=== PATIENT | male | born 1995 | race Caucasian/White ===

== ENCOUNTER 2020-07-03 10:50 | Outpatient (REF) | payer OTHER, SELFPAY ==
[2020-07-03 13:46] LABS: MANUAL DIFF FLAG NO
[2020-07-03 13:52] LABS: Basophils Absolute Auto 0.1 X10*3/uL (0.0-0.2); Basophils Percent Auto 1.6 % (0-2); Eosinophils Absolute Auto 0.6 X10*3/uL (0.0-0.4); Eosinophils Percent Auto 9.3 % (0-4); Hematocrit 45.1 % (42-52); Hemoglobin 15.5 g/dl (14.0-18.0); Imm Gran Abs Auto 0.01 X10*3/uL (0.00-0.03); Imm Gran Pct Auto 0.2 % (0.0-0.4); Lymphocytes Absolute Auto 2.2 X10*3/uL (1.2-4.9); Lymphocytes Percent Auto 34.2 % (20-40); Mean Corpuscular HGB Conc 34.4 g/dl (31.0-36.0); Mean Corpuscular Hemoglobin 31.3 pg (27.0-33.0); Mean Corpuscular Volume 90.9 fL (80-98); Monocytes Absolute Auto 0.5 X10*3/uL (0.1-1.2); Monocytes Percent Auto 7.9 % (2-11); Neutrophils Percent Auto 46.8 % (45-73); Platelet Count 223 X10*3/uL (160-400); Red Blood Count 4.96 X10*6/uL (4.60-5.80); Red Cell Distribution Width 12.1 % (11.0-16.0); White Blood Count 6.3 X10*3/uL (4.8-10.8)
[2020-07-03 14:19] LABS: Alanine Aminotransferase 48 U/L (0-40); Albumin Level 4.8 g/dL (3.5-5.0); Alkaline Phosphatase 109 U/L (39-117); Anion Gap 13 (12-20); Aspartate Amino Transferase 28 U/L (5-37); Bilirubin Total 0.4 mg/dL (0.0-1.0); Blood Urea Nitrogen 16 mg/dL (9-16); Calcium 9.9 mg/dL (8.4-10.2); Carbon Dioxide 29 mmol/L (22-29); Chloride 103 mmol/L (96-108); Estimated Glomerular Filt Rate > 60; Glucose Fasting 87 mg/dL (60-99); Potassium 4.6 mmol/L (3.3-5.1); Sodium 140 mmol/L (135-145); Total Protein 7.7 g/dL (6.5-8.0)
[2020-07-03 14:28] LABS: TSH reflex Free T4 2.46 uIU/mL (0.32-4.0)
== END 2020-07-03 10:51 | disposition home or self-care (01) ==
LOC: HO.HMGCLDS 10:50
PROVIDERS: PCP Physician Assistant; Visit Provider Physician Assistant
DX: E03.9 Hypothyroidism, unspecified (principal)
CPT/HCPCS: 36415; 80053; 84443; 85025

== ENCOUNTER 2020-09-05 16:42 | Outpatient (REF) | payer OTHER, SELFPAY | END 2020-09-05 16:43 | disposition home or self-care (01) | LOC: HO.LAB 16:42 | PROVIDERS: Visit Provider Nurse Practitioner Family | DX: J01.00 Acute maxillary sinusitis, unspecified (principal); Z20.822 Contact with and (suspected) exposure to COVID-19 | CPT/HCPCS: U0003; U0005 ==

== ENCOUNTER 2021-03-29 14:12 | Outpatient (REF) | payer OTHER, SELFPAY ==
[2021-03-29 16:37] LABS: Hematocrit 42.9 % (42.0-52.0); Hemoglobin 14.8 g/dl (14.0-18.0); Mean Corpuscular HGB Conc 34.5 g/dl (31.0-36.0); Mean Corpuscular Hemoglobin 30.1 pg (27.0-33.0); Mean Corpuscular Volume 87.4 fL (80.0-98.0); Mean Platelet Volume 9.9 fL (9.4-12.4); Platelet Count 238 X10*3/uL (160-400); Red Blood Count 4.91 X10*6/uL (4.60-5.80); Red Cell Distribution Width 11.9 % (11.0-16.0); White Blood Count 6.4 X10*3/uL (4.8-10.8)
[2021-03-29 16:44] LABS: Alanine Aminotransferase 37 U/L (0-40); Albumin Level 4.8 g/dL (3.5-5.0); Alkaline Phosphatase 92 U/L (39-117); Anion Gap 11 (12-20); Aspartate Amino Transferase 28 U/L (5-37); Bilirubin Total 0.4 mg/dL (0.0-1.0); Blood Urea Nitrogen 22 mg/dL (9-16); Calcium 9.9 mg/dL (8.4-10.2); Carbon Dioxide 26 mmol/L (22-29); Chloride 105 mmol/L (96-108); Estimated Glomerular Filt Rate > 60; Glucose Fasting 88 mg/dL (60-99); Potassium 4.1 mmol/L (3.3-5.1); Sodium 138 mmol/L (135-145); Total Protein 7.6 g/dL (6.5-8.0)
[2021-03-29 17:05] LABS: TSH reflex Free T4 1.91 uIU/mL (0.32-4.0)
== END 2021-03-29 14:13 | disposition home or self-care (01) ==
LOC: HO.HMGCLDS 14:12
PROVIDERS: PCP Physician Assistant; Visit Provider Physician Assistant
DX: E03.9 Hypothyroidism, unspecified (principal); I10 Essential (primary) hypertension
CPT/HCPCS: 36415; 80053; 84443; 85027

== ENCOUNTER 2024-04-17 09:40 | Outpatient (REF) | payer OTHER, SELFPAY ==
[2024-04-17 11:21] LABS: Hematocrit 43.8 % (42.0-52.0); Hemoglobin 15.3 g/dl (14.0-18.0); Mean Corpuscular HGB Conc 34.9 g/dl (31.0-36.0); Mean Corpuscular Hemoglobin 30.5 pg (27.0-33.0); Mean Corpuscular Volume 87.3 fL (80.0-98.0); Mean Platelet Volume 9.5 fL (9.4-12.4); Platelet Count 202 X10*3/uL (160-400); Red Blood Count 5.02 X10*6/uL (4.60-5.80); White Blood Count 6.7 X10*3/uL (4.8-10.8)
[2024-04-17 11:36] LABS: Alanine Aminotransferase 41 U/L (0-40); Albumin Level 4.6 g/dL (3.5-5.0); Alkaline Phosphatase 85 U/L (39-117); Anion Gap 11 (12-20); Aspartate Amino Transferase 30 U/L (5-37); Bilirubin Total 0.5 mg/dL (0.0-1.0); Blood Urea Nitrogen 16 mg/dL (9-16); Calcium 9.6 mg/dL (8.4-10.2); Carbon Dioxide 28 mmol/L (22-29); Chloride 105 mmol/L (96-108); Estimated Glomerular Filt Rate > 60; Glucose Fasting 87 mg/dL (60-99); Sodium 140 mmol/L (135-145); Total Protein 7.4 g/dL (6.5-8.0)
[2024-04-17 11:53] LABS: TSH reflex Free T4 1.59 uIU/mL (0.32-4.0)
== END 2024-04-17 09:41 | disposition home or self-care (01) ==
LOC: HO.HMGCLDS 09:40
PROVIDERS: PCP Physician Assistant; Visit Provider Physician Assistant
DX: E03.9 Hypothyroidism, unspecified (principal); Z13.1 Encounter for screening for diabetes mellitus
CPT/HCPCS: 36415; 80053; 84443; 85027

== ENCOUNTER 2024-04-20 13:27 | Outpatient (AMB) | payer OTHER, SELFPAY ==
[2024-04-20 13:31] VITALS: BP 104/72; PULSE 96; O2SAT 97; BMI 29.6
--- NOTE | 2024-04-20 13:31 | MHC.PC.OV ---
Vital Signs 04/20/24 13:31 Height 5 ft 11 in Weight 212 lb 2 oz BMI 29.6 BP 104/72 Blood Pressure Location Lt brachial Position Sitting Pulse 96 Pulse Source Pulse Oximeter Pulse Oximetry (%) 97 Oxygen Delivery Method Room Air Intake Visit Reasons: F/u after cancelled appt Intake Note: Patient is here today for a physical. 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: No Accompanied by: Self / Same As Patient Allergies amoxicillin [Augmentin] Allergy (Unknown, Verified 04/20/24 13:35) Unknown clavulanic acid [Augmentin] Allergy (Unknown, Verified 04/20/24 13:35) Unknown sulfamethoxazole Allergy (Unknown, Verified 04/20/24 13:35) Unknown Medication List - Last Reconciled 04/20/24 by Chapito Gaxiola PA-C chlorpheniramine maleate 4 mg PO ONCE PRN levothyroxine 75 mcg PO DAILY sertraline (Zoloft) 100 mg PO DAILY 90 days Tobacco use date assessed: 04/20/24 Dental Screening Dental Screen Date: 04/20/24 Did you have a dental visit in the last 12 months?: Yes Did you have a dental problem in the last 6 months where you did not have access to dental care?: No Was dental information given to patient?: Patient has dentist HPI F/u after cancelled appt HPI Details patient is a 29-year-old male here today for an annual physical. ? Patient has a past medical history significant for? anxiety, seasonal allergies, hypothyroidism. Concern--> chief reports he has been having some left hip stiffness and numbness while lying down. He does report having an injury to his left hip while playing hockey years ago. He is interested in physical therapy and getting x-rays of his left hip. He does also report having some neck pain and stiffness from time to time and wonders if he should see a chiropractor. .. HYpothothyroid: take? levothyroxine 75 mcg,? most recent TSH acceptable.? reports he has been euthyroid and has no hypothyroid symptoms. .. Anxiety:? He feels his anxiety is well controlled on current dose of sertraline 100 mg. . Vaccine : Up-to-date with tetanus, COVID and flu vaccines. Laboratory Tests 07/03/20 03/29/21 04/17/24 11:00 14:16 09:45 RBC 5.02 Creatinine 0.98 ALT 48 H 37 41 H TSH 1.59 PFSH Surgical History Hx of tonsillectomy H/O shoulder surgery Family History Father Heart attack, Onset Age: 69 Mother Rheumatoid arthritis Social History (Updated 04/20/24 @ 13:40 by Chapito Gaxiola PA-C) Housing: House Alcohol intake: current Alcohol intake frequency: holidays/special occasions only Alcohol type: beer Patient Tobacco Use Status: Never used Tobacco Tobacco use type: Cigarette e-Cigarette/Vaping Use: Never Used Second Hand Smoke Exposure: No Substance Use Type: Marijuana service: No Current occupational status: employed Current occupation: [employer] Cognitive needs: No Hearing needs: No Vision needs: No Questionnaire PHQ-9 Over the last 2 weeks, how often have you been bothered by any of the following problems? 1. Little interest or pleasure in doing things: not at all 2. Feeling down, depressed, or hopeless: not at all 3. Trouble falling or staying asleep, or sleeping too much: not at all 4. Feeling tired or having little energy: not at all 5. Poor appetite or overeating: not at all 6. Feeling bad about yourself - or that you are a failure or have let yourself or your family down: not at all 7. Trouble concentrating on things, such as reading the newspaper or watching television: not at all 8. Moving or speaking so slowly that other people could have noticed. Or the opposite - being so fidgety or restless that you have been moving around a lot more than usual: not at all 9. Thoughts that you would be better off or of hurting yourself in some way: not at all Total score: 0 Depression Screening Interpretation: Negative Depression Screening Done: Yes 12366 - PHQ-9 Billing: Yes Source: Developed by Drs. Guillermo Disla, Whit Linder, Miki Lynn and colleagues, with an educational gino from [employer]. Thrive Questionnaire Date Thrive assessed: 04/20/24 I am a: Patient What is your living situation today?: I have a steady place to live Within the past 12 months, did the food you bought not last and you didn't have the money to get more?: Never true Within the past 12 months, did you worry whether your food would run out before you got money to buy more?: Often true Do you have trouble paying for medicines?: No Do you have trouble getting transportation to medical appointments?: No Do you have trouble paying your heating and electricity bill?: No Do you have trouble taking care of your child, family member or friend?: No Do you have trouble with day-to-day activities such as bathing, preparing meals, shopping, managing finances, etc.?: No Are you currently unemployed and looking for a job?: No Are you interested in more education?: No Please select the resources that you would like help with: None Currently or been in a relationship where the following occur: No concerns reported THRIVE Score: 1 AUDIT C Alcohol Use Questionnaire (AUDIT-C) 1. How often do you have a drink containing alcohol?: 2-4 times a month 2. How many drinks containing alcohol do you have on a typical day when you are drinking?: 3 or 4 3. How often do you have six or more drinks on one occasion?: Less than monthly Total Score: 4 ERICK-7 AMB Questionnaire ERICK-7 Date ERICK - 7 assessed: 04/20/24 Feeling nervous, anxious, or on edge: 0 = Not at all Not being able to stop or control worryin = Not at all Worrying too much about different things: 0 = Not at all Trouble relaxin = Not at all Being so restless that it is hard to sit still: 0 = Not at all Becoming easily annoyed or irritable: 0 = Not at all Feeling afraid as if something awful might happen: 0 = Not at all Total ERICK-7 score (0-4 normal; 5-9 mild; 10-14 moderate; 15-21 severe): 0 Source: Developed by Drs. Guillermo Disla, Whit Linder, Miki Lynn and colleagues, with an educational gino from [employer]. ERICK-7 Assessment Billing ERICK-7 Assessment Tool: ERICK-7 Assessment 21530 Review of Systems Const Denies body aches, Denies chills, Denies excessive sweating, Denies fatigue, Denies fever(s) and Denies headache(s) Eyes Denies blurry vision ENT Denies dysphagia, Denies vertigo, Denies dizziness, Denies headache(s), Denies hearing loss and Denies tinnitus Card Denies chest pain, Denies chest pain with activity, Denies syncope, Denies irregular heart rhythm and Denies dyspnea Resp Denies chest congestion, Denies cough, Denies hemoptysis, Denies dyspnea and Denies wheezing GI Denies abdominal pain, Denies melena, Denies hematochezia, Denies coffee ground emesis, Denies dysphagia, Denies diarrhea, Denies nausea and Denies vomiting Denies difficulty urinating, Denies dysuria, Denies urinary frequency, Denies urinary hesitancy and Denies urinary urgency Musc Denies arthralgias, Denies limited range of motion, Denies muscle cramps and Denies muscle weakness Skin/Breast Denies rash and Denies skin ulcer Neuro Denies Abnormal speech present, Denies confusion, Denies vertigo, Denies dizziness, Denies syncope, Denies headache(s), Denies memory loss and Denies seizure-like activity Psych Denies anxiety, Denies confusion, Denies depression, Denies memory loss, Denies panic attacks and Denies paranoia Endo Denies excessive sweating, Denies fatigue, Denies flushing, Denies polydipsia and Denies polyuria Aller/Immun Denies wheezing Physical exam (Primary Care) Vital Signs: Last Vital Signs Pulse 96 04/20/24 13:31 BP 104/72 04/20/24 13:31 Pulse Ox 97 04/20/24 13:31 Oxygen Delivery Method Room Air 04/20/24 13:31 BMI result Body Mass Index 29.6 Tobacco/Smoking Status: Tobacco use Status Tobacco use date assessed 10/11/21 04/16/22 08:40 Patient Tobacco Use Status Never used Tobacco 04/16/22 08:40 Tobacco use type Cigarette 04/16/22 08:40 e-Cigarette/Vaping Use Never Used 04/16/22 08:40 Depression Screening Interpretation: Negative Thrive Assessment: Date of Thrive Assessment Date Thrive assessed 04/20/24 04/19/24 20:08 Currently or been in a relationship where the following occur: No concerns reported Const General: cooperative, comfortable, no acute distress, alert and awake; No confusion Orientation/consciousness: oriented to person, oriented to place, patient oriented x3 and No confusion HENMT Head: Yes normocephalic Ears: external ears normal and TM's normal bilaterally Face and sinus: No sinus tenderness Mouth: Normal oral and palatal mucosa present and tongue normal Teeth and gingiva: dentition normal and gingiva normal Throat: Yes posterior oropharynx normal, Yes tonsils normal and Yes uvula midline Eyes Conjunctivae: conjunctivae normal Sclerae: sclerae normal Pupils: Equal, round and reactive pupils present EOM: EOMs intact bilaterally Direct Ophthalmoscopy: No no photophobia Neck Neck: Yes no lymphadenopathy, No tender and Yes no JVD Thyroid: Thyroid normal Carotids: no bruits Chest Chest palpation & inspection: no tenderness Resp Effort & Inspection: normal respiratory effort, no audible wheezes, not labored and no stridor Auscultation: no crackles, no rales, no rhonchi and no wheezes Cardio Jugular venous distension: no JVD Rate: regular rate, not bradycardic and not tachycardic Rhythm: regular rhythm Bruits: no carotid bruits Peripheral pulses: Peripheral pulses 2+ throughout GI Inspection: Yes normal to inspection, No abdominal wall ecchymosis and No visible herniation Palpation (GI): Soft to palpation, nontender, no guarding, not rigid and No hepatosplenomegaly present Auscultation: normoactive bowel sounds General: Yes no CVA tenderness Back/Spine/Pelvis Back: no CVA tenderness and No back tenderness Cervical Spine: cervical ROM normal Thoracic/Lumbar Spine: thoracic and lumbar spine normal to inspection, straight leg raise negative bilaterally, No thoraco-lumbar ROM limited and No lumbar spinal tenderness Skin Lesions: no lesions Rashes: no rashes Wounds: no wounds Neuro General: oriented to person, oriented to place, patient oriented x3, CN's II-XI intact bilaterally and No confusion Cranial nerves: Yes Equal, round and reactive pupils present and Yes Normal accommodation reflex present Cognition (Neuro): normal cognition Speech: No Abnormal speech present Gait exam (Neuro): Normal gait present Motor exam (neuro): 5/5 motor strength present throughout Extrem Right upper extremity: full ROM; no cyanosis Left upper extremity: full ROM; no cyanosis Right lower extremity: no edema Left lower extremity: no edema Psych Appearance: grossly normal Mental Status: mental status grossly normal Affect: normal affect Attitude: cooperative Thought process: Normal thought process present Coding Level of Care Code Est Pt Prev Care 18-39y([id number]) Diagnoses Annual physical exam Z00.00 Hypothyroidism, unspecified type E03.9 Hypothyroidism type: unspecified Anxiety F41.9 Left hip pain M25.552 Left hip flexor tightness M24.552 Additional Codes ERICK-7 Assessment Billing - ERICK-7 Assessment Tool: ERICK-7 Assessment 47968 ([id number]) PHQ-9 - 71979 - PHQ-9 Billing: Yes ([id number]) Assessment & Plan Assessment & Plan (1) Annual physical exam: Code(s): Z00.00 - Encounter for general adult medical examination without abnormal findings Category: Medical Plan: As per HPI (2) Hypothyroid: Code(s): E03.9 - Hypothyroidism, unspecified Category: Medical Qualifiers: Hypothyroidism type: unspecified Qualified Code(s): E03.9 - Hypothyroidism, unspecified Plan: Patient's most recent TSH stable. Will continue him on current dose of levothyroxine. (3) Anxiety: Code(s): F41.9 - Anxiety disorder, unspecified Category: Medical Plan: Patient feels his anxiety has been well controlled with current dose of sertraline. (4) Left hip pain: Code(s): M25.552 - Pain in left hip Category: Medical Plan: As per HPI will get x-ray of left hip to evaluate for any early onset arthritis. (5) Left hip flexor tightness: Code(s): M24.552 - Contracture, left hip Category: Medical Plan: Patient will likely benefit from formal physical therapy for his tightness in hip extensors and flexors. Orders: Orders PT Evaluation and Treatment Today M24.552 - Contracture, left hip Comprehensive [place]. Panel Fast 1 Year Z13.1 - Encounter for screening for diabetes mellitus XR hip LT min 2V Today M25.552 - Pain in left hip TSH reflex Free T4 1 Year E03.9 - Hypothyroidism, unspecified
== END 2024-04-20 14:08 | disposition home or self-care (01) ==
PROVIDERS: PCP Physician Assistant; Visit Provider Physician Assistant
DX: Z00.00 Encounter for general adult medical examination without abnormal findings (principal); E03.9 Hypothyroidism, unspecified; F41.9 Anxiety disorder, unspecified; M25.552 Pain in left hip; M24.552 Contracture, left hip

== ENCOUNTER → 2024-04-20 13:27 | Outpatient (BNVA) | payer OTHER, SELFPAY | PROVIDERS: PCP Physician Assistant; Visit Provider Physician Assistant | DX: Z00.01 Encounter for general adult medical examination with abnormal findings (principal); E03.9 Hypothyroidism, unspecified; F41.9 Anxiety disorder, unspecified; M25.552 Pain in left hip; M24.552 Contracture, left hip; Z79.899 Other long term (current) drug therapy | CPT/HCPCS: 96127 ==

== ENCOUNTER 2025-04-26 08:08 | Outpatient (REF) | payer OTHER, SELFPAY ==
[2025-04-26 10:54] LABS: Hematocrit 46.2 % (42.0-52.0); Hemoglobin 15.8 g/dl (14.0-18.0); Mean Corpuscular HGB Conc 34.2 g/dl (31.0-36.0); Mean Corpuscular Hemoglobin 30.0 pg (27.0-33.0); Mean Corpuscular Volume 87.8 fL (80.0-98.0); NRBC Abs Auto 0.000 X10*3/uL (0.0-0.012); NRBC Pct Auto 0.0 /100WBC (0.0-0.2); Platelet Count 209 X10*3/uL (160-400); Red Blood Count 5.26 X10*6/uL (4.60-5.80); White Blood Count 6.1 X10*3/uL (4.8-10.8)
[2025-04-26 11:47] LABS: Alanine Aminotransferase 56 U/L (0-40); Albumin Level 4.9 g/dL (3.5-5.0); Alkaline Phosphatase 88 U/L (39-117); Anion Gap 8 (12-20); Aspartate Amino Transferase 36 U/L (5-37); Blood Urea Nitrogen 13 mg/dL (9-16); Calcium 9.7 mg/dL (8.4-10.2); Carbon Dioxide 30 mmol/L (22-29); Chloride 107 mmol/L (96-108); Estimated Glomerular Filt Rate > 60; Potassium 4.2 mmol/L (3.3-5.1); Sodium 141 mmol/L (135-145); Total Protein 7.5 g/dL (6.5-8.0)
== END 2025-04-26 08:09 | disposition home or self-care (01) ==
LOC: HO.HMGCLDS 08:08
PROVIDERS: PCP Physician Assistant; Visit Provider Physician Assistant
DX: Z13.1 Encounter for screening for diabetes mellitus (principal); E03.9 Hypothyroidism, unspecified
CPT/HCPCS: 36415; 80053; 84443; 85027

== ENCOUNTER 2025-04-27 08:13 | Outpatient (AMB) | payer OTHER, SELFPAY ==
--- NOTE | 2025-04-27 08:21 | A.OFFPC_ITS ---
Vital Signs 04/27/25 08:22 Height 5 ft 11 in Weight 222 lb BMI 31.0 BP 128/76 Blood Pressure Location Lt brachial Position Sitting Pulse 74 Pulse Source Pulse Oximeter Pulse Oximetry (%) 98 Oxygen Delivery Method Room Air Intake Visit Reasons: Annual Exam Allergies amoxicillin (Augmentin) Allergy (Unknown, Verified 04/27/25 08:57) Unknown clavulanic acid (Augmentin) Allergy (Unknown, Verified 04/27/25 08:57) Unknown sulfamethoxazole Allergy (Unknown, Verified 04/27/25 08:57) Unknown Medication List - Last Reconciled 04/27/25 by Chapito Gaxiola PA-C chlorpheniramine maleate 4 mg PO ONCE PRN levothyroxine 75 mcg PO DAILY sertraline (Zoloft) 100 mg PO DAILY 90 days Tobacco use date assessed: 04/27/25 Dental Screening Dental Screen Date: 04/27/25 Did you have a dental visit in the last 12 months?: Yes Did you have a dental problem in the last 6 months where you did not have access to dental care?: No Was dental information given to patient?: Patient has dentist HPI Annual Exam HPI Details patient is a 30-year-old male here today for an annual physical. ? Patient has a past medical history significant for? anxiety, seasonal allergies, hypothyroidism. Concern--> . Elevated liver enzyme: The patient has a chronic history of a slightly elevated ALT liver enzyme, with a current level of 56. This has been a persistent finding, with a level of 41 last year and 48 in 2020. He reports having had high liver results since he was [age] years old, at which time a biopsy was performed. There is a family history of high liver enzymes, as his mother has the same condition. .. HYpothothyroid: take? levothyroxine 75 mcg,? most recent TSH acceptable.? reports he has been euthyroid and has no hypothyroid symptoms. .. Class 1 obesity: Have noted a weight gain last office visit. He is currently aiming to lose weight to a target of 200 pounds and has started a gluten-free diet, which has improved his abdominal symptoms. .. Anxiety:? He feels his anxiety is well controlled on current dose of sertraline 100 mg. . Vaccine : Up-to-date with tetanus, COVID and flu vaccines. Laboratory Tests 04/17/24 04/26/25 09:45 08:15 RBC 5.26 Creatinine 1.06 ALT 41 H 56 H TSH 1.80 PFSH Surgical History Hx of tonsillectomy H/O shoulder surgery Family History Father Heart attack, Onset Age: 69 Mother Rheumatoid arthritis Social History (Updated 04/27/25 @ 09:02 by Chapito Gaxiola PA-C) Housing: House Alcohol intake: current Alcohol intake frequency: holidays/special occasions only Alcohol type: beer Patient Tobacco Use Status: Never used Tobacco Tobacco use type: Cigarette e-Cigarette/Vaping Use: Never Used Second Hand Smoke Exposure: No Substance Use Type: Marijuana service: No Current occupational status: employed Current occupation: [employer] Cognitive needs: No Hearing needs: No Vision needs: No Questionnaire PHQ-9 Over the last 2 weeks, how often have you been bothered by any of the following problems? 1. Little interest or pleasure in doing things: not at all 2. Feeling down, depressed, or hopeless: not at all 3. Trouble falling or staying asleep, or sleeping too much: not at all 4. Feeling tired or having little energy: not at all 5. Poor appetite or overeating: not at all 6. Feeling bad about yourself - or that you are a failure or have let yourself or your family down: not at all 7. Trouble concentrating on things, such as reading the newspaper or watching television: not at all 8. Moving or speaking so slowly that other people could have noticed. Or the opposite - being so fidgety or restless that you have been moving around a lot more than usual: not at all 9. Thoughts that you would be better off or of hurting yourself in some way: not at all Total score: 0 Depression Screening Interpretation: Negative Depression Screening Done: Yes 93949 - PHQ-9 Billing: Patient declined-do not bill Source: Developed by Drs. Guillermo Disla, Whit Linder, Miki Lynn and colleagues, with an educational gino from [employer]. Thrive Questionnaire Date Thrive assessed: 04/27/25 I am a: Patient What is your living situation today?: I have a steady place to live Within the past 12 months, did the food you bought not last and you didn't have the money to get more?: Never true Within the past 12 months, did you worry whether your food would run out before you got money to buy more?: Never true Do you have trouble paying for medicines?: No Do you have trouble getting transportation to medical appointments?: No Do you have trouble paying your heating and electricity bill?: No Do you have trouble taking care of your child, family member or friend?: No Do you have trouble with day-to-day activities such as bathing, preparing meals, shopping, managing finances, etc.?: No Are you currently unemployed and looking for a job?: No Are you interested in more education?: No Please select the resources that you would like help with: None Currently or been in a relationship where the following occur: No concerns reported THRIVE Score: 0 AUDIT C Alcohol Use Questionnaire (AUDIT-C) 1. How often do you have a drink containing alcohol?: 2-4 times a month 2. How many drinks containing alcohol do you have on a typical day when you are drinking?: 3 or 4 3. How often do you have six or more drinks on one occasion?: Less than monthly Total Score: 4 ERICK-7 AMB Questionnaire ERICK-7 Date ERICK - 7 assessed: 04/27/25 Feeling nervous, anxious, or on edge: 1 = Several days Not being able to stop or control worryin = Not at all Worrying too much about different things: 1 = Several days Trouble relaxin = Not at all Being so restless that it is hard to sit still: 0 = Not at all Becoming easily annoyed or irritable: 0 = Not at all Feeling afraid as if something awful might happen: 0 = Not at all Total ERICK-7 score (0-4 normal; 5-9 mild; 10-14 moderate; 15-21 severe): 2 Source: Developed by Drs. Guillermo Disla, Whit Linder, Miki Lynn and colleagues, with an educational gino from [employer]. Physical exam (Primary Care) Vital Signs: Last Vital Signs Pulse 74 04/27/25 08:22 BP 128/76 04/27/25 08:22 Pulse Ox 98 04/27/25 08:22 Oxygen Delivery Method Room Air 04/27/25 08:22 BMI result Body Mass Index 31.0 Tobacco/Smoking Status: Tobacco use Status Tobacco use date assessed 04/27/25 04/27/25 08:29 Patient Tobacco Use Status Never used Tobacco 04/27/25 08:29 Tobacco use type Cigarette 04/27/25 08:29 e-Cigarette/Vaping Use Never Used 04/27/25 08:29 PHQ-9: PHQ-9 Score PHQ-9: Total score 0 04/27/25 08:29 Depression Screening Interpretation: Negative Thrive Assessment: Date of Thrive Assessment Date Thrive assessed 04/27/25 04/27/25 08:29 Currently or been in a relationship where the following occur: No concerns reported Office Procedures Flu Questionnaire Does the patient have a severe egg allergy?: No Does the patient have severe life threatening allergies?: No Does the patient have a fever or illness today?: No Has the patient ever had Guillain-Camilla Syndrome?: No Has the patient ever had any past reaction to a flu shot?: No Immunizations Fluarix [id number] (PF) 45 mcg (15 mcg x 3)/0.5 mL IM syringe Performing Provider: Chapito Gaxiola PA-C [facility] Administered by: Elidia Mann CMA on 04/27/25 08:29 Dose Route Admin Location Dispensed Lot Number Expiration Date [employer] 0.5 mL IM Left Deltoid 0.5 mL [id number] 11/15/25 [id number] [employer] VIS Given Date VIS Provided VIS Publication Date 04/27/25 Single Vaccine 24 Eligibility Eligibility Date Funding Source Not [facility] Eligible 04/27/25 Private Coding Diagnoses Annual physical exam Z00.00 Elevated ALT measurement R74.01 Hypothyroidism, unspecified type E03.9 Hypothyroidism type: unspecified Anxiety F41.9 Obesity (BMI 30.0-34.9) E66.9 Assessment & Plan Assessment & Plan (1) Annual physical exam: Code(s): Z00.00 - Encounter for general adult medical examination without abnormal findings Category: Medical Plan: As per HPI (2) Elevated ALT measurement: Code(s): R74.01 - Elevation of levels of liver transaminase levels Category: Medical Plan: Regarding the chronically elevated ALT, which may be a familial trait or related to fatty liver, an abdominal ultrasound was offered. The patient deferred the ultrasound for now, and the plan is to recheck liver function tests, along with a thyroid panel and a fasting blood sugar, in approximately six months. If the ALT remains elevated at that time, he will reconsider the ultrasound. (3) Hypothyroid: Code(s): E03.9 - Hypothyroidism, unspecified Category: Medical Qualifiers: Hypothyroidism type: unspecified Qualified Code(s): E03.9 - Hypoth yroidism, unspecified Plan: Patient's most recent TSH stable. Will continue him on current dose of levothyroxine. (4) Anxiety: Code(s): F41.9 - Anxiety disorder, unspecified Category: Medical Plan: Patient feels his anxiety has been well controlled with current dose of sertraline. We discussed his weight management goals and the potential role of sertraline in weight gain. I suggested that he could consider reducing his sertraline dose to 50mg, as his life circumstances have improved since starting the medication, but emphasized the importance of balancing this with his mental health needs. (5) Obesity (BMI 30.0-34.9): Code(s): E66.9 - Obesity, unspecified Category: Medical Plan: Patient does understand his BMI is over 30 will work on being more physically active and adapt to better eating habits to reduce his weight Orders: Orders Comprehensive [place]. Panel Fast Today R74.01 - Elevation of levels of liver t ransaminase levels TSH reflex Free T4 Today E03.9 - Hypothyroidism, unspecified Influenza [id number] Immunization Today Z23 - Encounter for immunization Medications: Discontinued flu vacc [id number] 6mos up(PF) Discontinued Reason: Order 0.5 mL IM ONCE 0.5 mL 0RF E03.9 - Hypothyroidism, unspecified
[2025-04-27 08:22] VITALS: BP 128/76; PULSE 74; O2SAT 98; BMI 31.0
== END 2025-04-27 09:11 | disposition home or self-care (01) ==
LOC: HO.HMCH 08:14
PROVIDERS: PCP Physician Assistant; Visit Provider Physician Assistant
DX: Z23 Encounter for immunization (principal)

== ENCOUNTER → 2025-04-27 08:13 | Outpatient (BNVA) | payer OTHER, SELFPAY | PROVIDERS: PCP Physician Assistant; Visit Provider Physician Assistant | DX: Z23 Encounter for immunization (principal); Z13.31 Encounter for screening for depression; Z13.39 Encounter for screening examination for other mental health and behavioral disorders | CPT/HCPCS: 90471; 90656; 96127 ==